=== PATIENT | female | born 1995 | race Caucasian/White ===

== ENCOUNTER 2019-12-02 08:59 | Outpatient (RCR) | payer OTHER, SELFPAY | END 2019-12-16 23:59 | disposition home or self-care (01) | LOC: SOT 08:59 | PROVIDERS: Visit Provider Physician Assistant | DX: M25.531 Pain in right wrist (principal) | CPT/HCPCS: 97035; 97110; 97140; 97166; L3806 ==

== ENCOUNTER 2019-12-17 06:00 | Outpatient (RCR) | payer OTHER, SELFPAY | END 2020-01-16 23:59 | disposition home or self-care (01) | LOC: SOT 06:00 | PROVIDERS: Visit Provider Physician Assistant | DX: M25.531 Pain in right wrist (principal) | CPT/HCPCS: 97035; 97110; 97140; 97530; 97760; L3906 ==

== ENCOUNTER → 2019-12-24 13:45 | Outpatient (BNVA) | payer OTHER, SELFPAY | PROVIDERS: Referring Provider Physician Assistant; Visit Provider Specialist | DX: M79.641 Pain in right hand (principal); M25.531 Pain in right wrist | CPT/HCPCS: 95908 ==

== ENCOUNTER → 2020-02-25 12:22 | Outpatient (BNVA) | payer OTHER, SELFPAY | PROVIDERS: Visit Provider Nurse Practitioner Family | DX: J06.9 Acute upper respiratory infection, unspecified (principal); R69 Illness, unspecified; Z11.59 Encounter for screening for other viral diseases | CPT/HCPCS: 87635 ==

== ENCOUNTER → 2020-03-25 15:39 | Outpatient (BNVA) | payer OTHER, SELFPAY | PROVIDERS: Visit Provider Nurse Practitioner Family | DX: Z11.59 Encounter for screening for other viral diseases (principal); Z20.828 Contact with and (suspected) exposure to other viral communicable diseases | CPT/HCPCS: 87635 ==

== ENCOUNTER 2020-05-12 06:00 | Outpatient (RCR) | payer OTHER, SELFPAY | END 2020-05-17 23:59 | disposition home or self-care (01) | LOC: SOT 06:00 | PROVIDERS: Referring Provider Orthopaedic Surgery Hand Surgery; Visit Provider Orthopaedic Surgery Hand Surgery | DX: G56.01 Carpal tunnel syndrome, right upper limb (principal); G56.21 Lesion of ulnar nerve, right upper limb | CPT/HCPCS: 97035; 97110; 97167 ==

== ENCOUNTER 2020-05-18 06:00 | Outpatient (RCR) | payer OTHER, SELFPAY | END 2020-06-17 23:59 | disposition home or self-care (01) | LOC: SOT 06:00 | PROVIDERS: Referring Provider Orthopaedic Surgery Hand Surgery; Visit Provider Orthopaedic Surgery Hand Surgery | DX: Z98.890 Other specified postprocedural states (principal); M25.531 Pain in right wrist | CPT/HCPCS: 97035; 97110; 97112; 97140 ==

== ENCOUNTER 2020-06-18 06:00 | Outpatient (RCR) | payer OTHER, SELFPAY | END 2020-06-23 23:00 | disposition home or self-care (01) | LOC: SOT 06:00 | PROVIDERS: Referring Provider Orthopaedic Surgery Hand Surgery; Visit Provider Orthopaedic Surgery Hand Surgery | DX: G56.01 Carpal tunnel syndrome, right upper limb (principal) | CPT/HCPCS: 97035; 97110 ==

== ENCOUNTER 2020-07-25 10:49 | Emergency (ER) | payer MEDICAID, SELFPAY ==
[2020-07-25 10:57] VITALS: BP 152/88; PULSE 94; RESP 18; TEMP 36.6; O2SAT 97; BMI 33.3
[2020-07-25 10:59] VITALS: BP 152/88; PULSE 96; RESP 18; O2SAT 97
[2020-07-25 11:16] LABS: Rapid Strep A Test Negative (Negative)
--- NOTE | 2020-07-25 11:24 | ED.PEDHENT ---
HPI - Pediatric HENT General: Chief complaint: Dental/Oral Stated complaint: Throat Bleeding/can't swallow Time Seen by Provider: 07/25/20 11:19 Source: patient Mode of arrival: ambulatory Limitations: no limitations History of Present Illness: HPI Narrative: Patient comes in with her sore throat for about 1 week. Patient reports exposure to [id number]-mouth. Patient was concerned for strep. Patient appears well. Patient appears no acute distress. MD complaint: sore throat Pediatric ROS Review of Systems: ALL SYSTEMS: reviewed and no additional remarkable complaints except as stated EARS, NOSE, MOUTH, THROAT: sore throat Pediatric Exam Const: Constitutional General: cooperative and no acute distress HENMT: Head: normal to inspection and normocephalic Ears: TM's normal bilaterally Nose: Normal external nose present Mouth: Normal oral and palatal mucosa present Throat: other (Posterior pharynx is red) Eyes: General: appearance normal, both eyes and all related structures Neck: Neck: full ROM Lymphatic: lymphadenopathy (Mild anterior cervical.) Chest: Chest: normal inspection of the chest Resp: Effort & Inspection: normal respiratory effort and able to speak in complete sentences Cardio: Rate: regular rate Rhythm: regular rhythm GI: Palpation: Soft to palpation : Bladder and Renal Exam: no CVA tenderness Spine/Pelvis: Thoracic/Lumbar Spine: thoracic and lumbar spine normal to inspection Skin: General: no rashes or lesions noted Neuro: General: Yes oriented to person, Yes oriented to place and Yes oriented to time Extrem: General: normal to inspection Psych: Mental Status: mental status grossly normal Attitude: cooperative Course Vital Signs: Vital signs: Vital Signs Temperature 97.8 F 07/25/20 10:57 Pulse Rate 96 07/25/20 10:59 Respiratory Rate 18 07/25/20 10:59 Blood Pressure 152/88 07/25/20 10:59 Pulse Oximetry 97 07/25/20 10:59 Medical Decision Making [facility] Narrative: Medical decision making narrative: Patient comes in today for complaints of sore throat for about 1 week. Patient reports that her daughter has [id number]-mouth. Patient denies any fever. Patient appears well. Posterior pharynx is really erythematous. Vital signs are normal. Differential diagnosis includes strep pharyngitis, upper respiratory infection, viral pharyngitis. Strep test was negative. Reviewed exam with patient with recommendations for treatment and follow-up. We will give her 1 dose of dexamethasone 10 mg to help with the throat soreness and then encourage acetaminophen and ibuprofen for pain. Throat culture will be done and patient will be contacted if antibiotic is needed. Patient reports understanding of care plan and need for follow-up or return. Lab Data: Labs: Lab Results 07/25/20 Range/Units 11:00 Group A Strep Rapi d Negative (Negative) Discharge Plan Discharge Patient Disposition: Home Clinical Impression: Acute viral pharyngitis Condition: Stable Discharge Orders: Discharge ED (Routine); Ordered 07/25/20 Ordered By: Ventura Jacobo Discharge Diet: Usual diet Discharge Activity: Increase activity as tolerated Patient Instructions: Pharyngitis (ED) Activity Restrictions/Additional Instructions: Drink plenty of fluids. Use acetaminophen and ibuprofen for pain. Your throat culture will grow out within 3 days, if it grows out a bacterial infection we will contact you and call in an appropriate antibiotic. Follow-up with primary care as needed. Return to the emergency department for new concerns. Coding Level of Care Code ED [employer] for Anderson Meneses
[2020-07-25] MEDS: dexamethasone 4 mg Tablet 10 MG PO (11:29)
== END 2020-07-25 11:29 | disposition home or self-care (01) ==
PROVIDERS: Emergency Provider Nurse Practitioner Family
DX: J02.8 Acute pharyngitis due to other specified organisms (principal)
CPT/HCPCS: 12345; 87081; 87880; 99282; 99283; J8540

== ENCOUNTER 2020-07-28 06:00 | Outpatient (RCR) | payer OTHER, SELFPAY | END 2020-08-15 23:59 | disposition home or self-care (01) | LOC: SOT 06:00 | PROVIDERS: Referring Provider Physician Assistant Surgical; Visit Provider Physician Assistant Surgical | DX: G56.22 Lesion of ulnar nerve, left upper limb (principal) | CPT/HCPCS: 97022; 97035; 97110; 97112; 97165 ==

== ENCOUNTER 2020-08-16 06:00 | Outpatient (RCR) | payer OTHER, SELFPAY | END 2020-09-15 23:59 | disposition home or self-care (01) | LOC: SOT 06:00 | PROVIDERS: Referring Provider Physician Assistant Surgical; Visit Provider Physician Assistant Surgical | DX: G56.22 Lesion of ulnar nerve, left upper limb (principal) | CPT/HCPCS: 97022; 97110 ==

== ENCOUNTER 2024-05-20 11:42 | Outpatient (CLI) | payer OTHER, SELFPAY ==
--- NOTE | 2024-05-20 11:44 | MM_ITS ---
WS: [id number] DIAGNOSTIC BILATERAL DIGITAL BREAST TOMOSYNTHESIS MAMMOGRAPHY WITH CAD LEFT breast ultrasound, limited. HISTORY: L BREAST LUMP @9 OCLOCK COMPARISON: None available. TECHNIQUE: Bilateral craniocaudad, mediolateral oblique, and mediolateral views are submitted with to mosynthesis and SM. Spot compression LEFT CC and MLO. Computer aided detection utilized. Breast composition: There are scattered areas of fibroglandular density. Markers placed along the 9:00 axis of the LEFT breast. There is no underlying mass or distortion. Nor mal appearance of the fibroglandular tissue. No calcifications. LEFT breast ultrasound, limited. No masses identified by ultrasound. There is an area of shadowing which I believe is edge artifact. Teresa ureña was not comfortable exposing her breast to the ultrasound nor raising her arm up for better im age quality. MM/MM diag BI tomosynthesis [id number] IMPRESSION: BI-RADS: 2 - Benign. FOLLOW UP: See Report No abnormality noted in the LEFT breast at the palpable abnormality. Recommend annual screening mammography beginning at the age of 40.
== END 2024-05-20 11:43 | disposition home or self-care (01) ==
LOC: RAD 11:43
PROVIDERS: Visit Provider Advanced Practice Midwife
DX: R92.323 Mammographic fibroglandular density, bilateral breasts (principal)
CPT/HCPCS: 76642; 77062; G0279